=== PATIENT | male | born 1965 | race Caucasian/White ===

== ENCOUNTER 2023-08-15 07:05 | Emergency (ER) | payer OTHER, SELFPAY ==
[2023-08-15 07:07] VITALS: BP 123/92; PULSE 86; RESP 15; TEMP 37.1; O2SAT 100
--- NOTE | 2023-08-15 07:24 | PC.NURSE ---
Spoke with staff from [facility], who states they want the pt to have a psychiatric evaluation due to the pt destroying his apartment with an ax before arriving to their facility. They report the pt has a hx of paranoid schizophrenia and is not compliant with his medication. Pt also has a hx of ETOH abuse. Staff also reports they wanted the pt to be transported to [place] or [facility] for a psychiatric evaluation.
--- NOTE | 2023-08-15 07:46 | PC.NURSE ---
Breakfast tray ordered for pt
--- NOTE | 2023-08-15 09:41 | ED.GENADULT ---
HPI - General Adult General Chief complaint: Unspecified Stated complaint: wandering merrick [id number], from [facility] Time Seen by Provider: 08/15/23 07:07 Source: patient and RN notes reviewed Mode of arrival: EMS History of Present Illness HPI narrative: This is a 57 year old male with history of paranoid schizophrenia who present via EMS for possible psych evaluation. Patient is alert and oriented x 4. He states he was admitted to [facility] for 3 weeks and then he was discharged to [facility] 1 week ago. Patient states the facility smelled like urine so he left facility this morning trying to hitch hike east. He denies any complaints. He denies homicidal ideations or suicidal ideations. Nursing staff reports they want patient to have psych evaluation but he has not been aggressive or show himself to be danger to himself or anyone else. Related Data Allergies Allergy/AdvReac Type Severity Reaction Status Date / Time No Known Allergies Allergy Verified 08/15/23 07:54 Review of Systems Constitutional: Constitutional: Denies weakness Cardiovascular: Cardiovascular: Denies syncope, Denies rapid heart rate, Denies irregular heart rhythm, Denies leg edema and Denies dyspnea Respiratory: Respiratory: Denies chest congestion, Denies hemoptysis, Denies excessive phlegm production and Denies dyspnea Gastrointestinal: Gastrointestinal: Denies abdominal pain, Denies hematochezia, Denies diarrhea and Denies vomiting Genitourinary: Genitourinary: Denies hematuria, Denies dysuria, Denies penile discharge and Denies testicular pain Musculoskeletal: Musculoskeletal: Denies joint swelling, Denies loss of height and Denies muscle weakness Neurologic: Denies syncope, Denies focal weakness and Denies weakness PMFSH Past Medical History Medical History (Updated 08/15/23 @ 09:46 by Carol Ann Neri MD) Paranoid schizophrenia Surgical History Surgical History (Updated 08/15/23 @ 09:44 by Carol Ann Neri MD) H/O knee surgery Social History Social History (Updated 08/15/23 @ 09:45 by Carol Ann Neri MD) Smoking status: Current every day smoker Alcohol intake: former Alcohol use details: he has not had alcohol in 2 months Substance use: never Exam Narrative: GENERAL: Well-appearing, well-nourished, and in no acute distress. HEAD: Normocephalic, atraumatic EYES: PERRLA and EOMI, conjunctiva clear without discharge NOSE: Nares clear, no rhinorrhea or epistaxis THROAT:Mucous membranes moist, Oropharynx normal without erythema, exudate, peritonsillar swelling or fluctuance NECK: Supple, without lymphadenopathy or mass RESPIRATORY: No respiratory distress, Airway patent, Respirations non-labored, Clear to auscultation without rales, rhonchi or wheeze HEART: Regular rate and rhythm. No murmur heard. Normal peripheral pulses. ABDOMEN: Soft, nontender, nondistended, normal active bowel sounds. No masses. No rebound or guarding, No organomegaly. EXTREMITIES: No edema, normal strength with full range of motion. SKIN: Warm, dry, normal color without rash NEURO: Alert and oriented x3. CN 2-12 grossly intact. No focal deficits. PSYCH: Normal mood and affect. Course Reevaluation(s) Reevaluation #1: PAtient has pleasant, cooperative in ER. He has not been a danger to staff or himself. He denies HI/SI. He does not seem to me psych evaluation criteria. He has no complaints. He will be discharged back to facility. Date: 08/15/23 Time: 09:00 Vital Signs Vital signs: Vital Signs Temperature 98.8 F 08/15/23 07:07 Pulse Rate 86 08/15/23 07:07 Respiratory Rate 15 08/15/23 07:07 Blood Pressure 123/92 H 08/15/23 07:07 Pulse Oximetry 100 08/15/23 07:07 Oxygen Delivery Room Air 08/15/23 07:07 Temperature 98.8 F 08/15/23 07:07 Pulse Rate 86 08/15/23 07:07 Respiratory Rate 15 08/15/23 07:07 Blood Pressure 123/92 H 08/15/23 07:07 Pulse Oximetry 100 08/15/23 07:07 [facility]
== END 2023-08-15 13:16 ==
PROVIDERS: Emergency Provider General Practice
DX: F20.0 Paranoid schizophrenia (principal); F17.200 Nicotine dependence, unspecified, uncomplicated
CPT/HCPCS: 99281